=== PATIENT | female | born 1950 | race Caucasian/White ===

== ENCOUNTER 2024-02-12 15:15 | Emergency (ER) | payer MEDICARE, OTHER, SELFPAY ==
[2024-02-12 15:16] VITALS: BP 126/79
--- NOTE | 2024-02-12 16:30 | ED.GENMED ---
History of Present Illness
<Chloe Burnette PA-C - Last Filed: 02/12/24 19:12>
General
Chief Complaint: Fall
Source: patient
Exam Limitations: none
Time Seen by Provider: 02/12/24 16:06
Nursing documentation reviewed up to this point in time: agreed with
History of Present Illness
History of Present Illness:
This is a 73-year-old female with a past medical history of asthma, hyperlipidemia, GERD, benign pancreatic states, bilateral knee and hip replacements presenting emergency department today with concerns of a fall. Patient states that she was
outside doing yard work today when she tripped over the hose and fell straight onto her face. Patient states that she immediately started feeling headache right after and states that she just in general feels 'foggy in the head.' Patient also
notes some mild dizziness. Patient denies any nausea or vomiting. Patient states that she has some knee pain as well, she is able to get up on her own after the fall with no assistance. Patient states that as the day progressed, her headache
worsened and did not improve with Tylenol. Patient states she was going her dog out when the dog pulled her on the leash and she fell again this time onto her right side. Patient started to experience right lower rib pain with this as well as
right shoulder pain and worsening right knee pain. Patient denies any loss of consciousness, denies any ear drainage, denies any nosebleeding. Patient denies any dizziness, chest pain, potation's prior to the fall.
Past History
<Chloe Burnette PA-C - Last Filed: 02/12/24 19:12>
Past History
ED Past Medical History: Asthma, Cancer (breast), GERD, HTN, Hypercholesterolemia and Other (Pancreatitis, osteoarthritis)
Social History
Tobacco: Non-smoker
Personal:
Review of Systems
<Chloe Burnette PA-C - Last Filed: 02/12/24 19:12>
Review of Systems
All Other Systems: ROS reviewed and negative except as documented in HPI and ROS
Phy Exam
<Chloe Burnette PA-C - Last Filed: 02/12/24 19:12>
Physical Exam
Physical Exam:
General: Patient is well appearing and in no acute distress; non-toxic
Skin: Warm and dry, no rashes or lesions
Head: Normocephalic, small 0.5 cm superficial abrasion over the bridge of the nose. No tenderness palpation of the nasal bones or the nasal cartilage. TMJ joints intact bilaterally. Negative Reynolds sign, negative raccoon sign.
Eyes: Sclera non-icteric. EOMs intact. PERRLA.
Nose: No septal hematoma
Cardiac: Regular rate and rhythm. Mild tenderness to palpation of the right lower ribs. No overlying ecchymosis, no palpable crepitus.
Peripheral Vascular: Brisk cap refill. 2+ radial and brachial pulses bilaterally.
Pulm: Normal respiratory effort, no wheezes, rales, or rhonchi
Abdomen: No abdominal tenderness to palpation, no ecchymosis, no signs or trauma
Musculoskeletal: Pain with passive range of motion of right shoulder, most pronounced with abduction. No palpable bony deformities.
Neuro: CN II-XII intact, no focal neurologic deficits. 5/5 strength in bilateral upper and lower extremities. Normal finger to nose testing.
Psychiatric: Appropriate mood and affect.
Course
<Chloe Burnette PA-C - Last Filed: 02/12/24 19:12>
Orders/Labs/Results
Orders:
Orders
02/12/24 16:29
CT Cervical Spine W/o Iv Contr Urgent
Reason For Exam: neck pain, weakness following head strike
02/12/24 16:30
CT Head W/o Iv Contrast Urgent
Comment:
Reason For Exam: headache dizziness following head strike
CR Chest - 2 Views Urgent
Comment:
Reason For Exam: right sided chest pain following fall
Shoulder, Right 2 Views [CR Shoulder - Right Min 2 View] Urgent
Comment:
Reason For Exam: right shoulder pain following fall
02/12/24 17:44
Acetaminophen [Tylenol] 1,000 mg .ROUTE .STK-MED ONE
02/12/24 17:48
Acetaminophen [Tylenol] 1,000 mg PO NOW STA
Vital Signs
Initial and Last Documented VS:
Initial Vital Signs
Temp Pulse Resp BP Pulse Ox
98.7 F 78 18 126/79 97
02/12/24 15:16 02/12/24 15:16 02/12/24 15:16 02/12/24 15:16 02/12/24 15:16
Last Documented Vital Signs
Temp Pulse Resp BP Pulse Ox
98.7 F 76 20 131/73 98
02/12/24 15:16 02/12/24 18:10 02/12/24 18:10 02/12/24 18:10 02/12/24 18:10
Karonlt;Jonathan Omalley, DO - Last Filed: 02/12/24 19:13>
Orders/Labs/Results
Orders:
Orders
02/12/24 16:29
CT Cervical Spine W/o Iv Contr Urgent
Reason For Exam: neck pain, weakness following head strike
02/12/24 16:30
CT Head W/o Iv Contrast Urgent
Comment:
Reason For Exam: headache dizziness following head strike
CR Chest - 2 Views Urgent
Comment:
Reason For Exam: right sided chest pain following fall
Shoulder, Right 2 Views [CR Shoulder - Right Min 2 View] Urgent
Comment:
Reason For Exam: right shoulder pain following fall
02/12/24 17:44
Acetaminophen [Tylenol] 1,000 mg .ROUTE .STK-MED ONE
02/12/24 17:48
Acetaminophen [Tylenol] 1,000 mg PO NOW STA
Vital Signs
Initial and Last Documented VS:
Initial Vital Signs
Temp Pulse Resp BP Pulse Ox
98.7 F 78 18 126/79 97
02/12/24 15:16 02/12/24 15:16 02/12/24 15:16 02/12/24 15:16 02/12/24 15:16
Last Documented Vital Signs
Temp Pulse Resp BP Pulse Ox
98.7 F 76 20 131/73 98
02/12/24 15:16 02/12/24 18:10 02/12/24 18:10 02/12/24 18:10 02/12/24 18:10
<Chloe Burnette PA-C - Last Filed: 02/12/24 19:12>
MDM/Problems Addressed
Differential Diagnosis Includes:
ddx include concussion, contusion, tension headache, epidural hematoma, nasal fracture, intercostal strain
MDM/Problems Addressed:
Fall:
This is a 73-year-old female with a past medical history of asthma, hyperlipidemia, GERD, benign pancreatic states, bilateral knee and hip replacements presenting emergency department today with concerns of a fall. Patient fell twice today, both
occurrences a purely mechanical fall tripping over her hose and then tripping with her dog. She fell first onto her face from standing position and secondarily fell on her right side. Her CT scan of her head is negative for any acute intracranial
abnormalities, any spinal fracture. Her shoulder x-ray shows no evidence of dislocation or fracture, her chest x-ray shows no evidence of rib fracture or pneumothorax. Patient stable for discharge at this point. We discussed signs and symptoms of
concussion. Discussed importance of follow-up for primary.
Chronic conditions affecting care:
asthma, hyperlipidemia, GERD, pancreatic cyst status post whipple
Acute Exacerbation and/or Progression of Chronic Illness:
Bilateral hip and knee replacement
<Chloe Burnette PA-C - Last Filed: 02/12/24 19:12>
*Pulse Oximetry
Patient hypoxic: no
*Critical Care Note
Total Time (30-74mins, 75-104mins- exclusive of procedures): Not Applicable
Data Reviewed
Review of Other/Old Records Reveals: Records (Reviewed ER physician documentation from 09/05/19)
Source: patient and records
<Chloe Burnette PA-C - Last Filed: 02/12/24 19:12>
Patient Management
Escalation/DeEscalation of care consider admission/obs:
Reviewed workup and treatment plan with my attending Dr. Omalley.
ED Attending Note
<Chloe Burnette PA-C - Last Filed: 02/12/24 19:12>
-
Portions of this chart may have been created with voice recognition software.� Occasional wrong word or��sound alike� substitutions may have occurred due to the inherent limitations of voice recognition software.
<Jonathan Omalley, - Last Filed: 02/12/24 19:13>
ED Attending Note
Patient seen and examined by attending physician: Yes
I performed the substantive portion of visit, reviewed & personally made and approve the management plan that is documented in note by myself or AMISH.: Yes
ED Attending Note:
Agree with Chloe's note.
Pt presents after a fall. No loc. C/o right shoulder pain, right lat chest pain.
Physical
Awake, alert
Neuro: normal exam
imaging reviewed. No fx on plain films. CT read by radiolog NAD.
Discharge Plan
Departure
Patient with high blood pressure during this ER visit?: Yes
Condition: Good
Discharge Problem:
Fall
Instructions: Concussion, Adult (DC), Preventing falls in adults, BLOOD PRESSURE
Referrals:
Juan Bobby MD [Family Provider] -
Activity Restrictions/Additional Instructions:
Please return to the emergency department should you experience
Interventions
Interventions:
*Risk Screen - Suicide Last Done: 02/12/24 15:16
*General Assessment Last Done: 02/12/24 15:16
*Neglect/Abuse Screening Last Done: 02/12/24 15:16
ED-Musculoskeletal Assessment Last Done: 02/12/24 17:10
ED- Neurological Assessment Last Done: 02/12/24 17:10
ED-Skin Assessment Last Done: 02/12/24 17:10
Discharge Date and Time
Print Language: [place]
[2024-02-12] MEDS: TYLENOL 1000 MG PO (17:48)
[2024-02-12 18:10] VITALS: BP 131/73
== END 2024-02-12 19:33 | disposition home or self-care (01) ==
LOC: EMR 15:15
PROVIDERS: EMERGENCY PHYSICIAN Emergency Medicine; FAMILY PHYSICIAN Internal Medicine
DX: S00.31XA Abrasion of nose, initial encounter (principal); M54.2 Cervicalgia; G44.309 Post-traumatic headache, unspecified, not intractable; R53.1 Weakness; M25.561 Pain in right knee; M25.511 Pain in right shoulder; R07.81 Pleurodynia; R42 Dizziness and giddiness; W18.09XA Striking against other object with subsequent fall, initial encounter; Y93.H2 Activity, gardening and landscaping; J45.909 Unspecified asthma, uncomplicated; E78.00 Pure hypercholesterolemia, unspecified; I10 Essential (primary) hypertension; K21.9 Gastro-esophageal reflux disease without esophagitis; M19.90 Unspecified osteoarthritis, unspecified site; K86.1 Other chronic pancreatitis; Z96.653 Presence of artificial knee joint, bilateral; Z96.643 Presence of artificial hip joint, bilateral; Z85.3 Personal history of malignant neoplasm of breast
CPT/HCPCS: 99284; 70450; 71046; 72125; 73030